=== PATIENT | male | born 1965 | race Caucasian/White ===

== ENCOUNTER 2024-03-23 02:02 | Inpatient (IN) | payer OTHER ==
[2024-03-23] VITALS (22 sets, daily range): BP systolic 97–137; BP diastolic 66–115; PULSE 85–160; RESP 16–30; TEMP 97.9–98.8; O2SAT 93–100
[~2024-03-23] VITALS: Ht 195.6 cm; Wt 129.3 kg
[2024-03-23] MEDS ORDERED: DIGOXIN INJ 0.25 MG/ML 2 ML AMP ONE (02:13)
[2024-03-23] MEDS: DILTIAZEM HCL 5 MG/ML 5 ML VIAL IV STA ×2 (02:14→03:34)
[2024-03-23] MEDS ORDERED: METOPROLOL TARTRATE INJ 1 MG/ML VIAL ONE (02:14)
[2024-03-23] MEDS: ASPIRIN 325 MG TAB PO STA (02:15)
[2024-03-23] MEDS: METOPROLOL TARTRATE INJ 1 MG/ML VIAL IV STA (02:19)
[2024-03-23] MEDS: DIGOXIN INJ 0.25 MG/ML 2 ML AMP IV STA (02:19)
[2024-03-23 02:35] LABS: BASOPHILS % 0.2 % (0.0-1.0); EOSINOPHILS # (AUTO) 0.1 (0.0-0.4); EOSINOPHILS % 0.5 % (0.0-6.0); HEMATOCRIT 46.5 % (38.2-49.6); HEMOGLOBIN 14.8 g/dL (14.0-18.0); LYMPHOCYTES # (AUTO) 2.3 (1.0-3.2); LYMPHOCYTES % 13.7 % (18.0-39.1); MEAN CORPUSCULAR HEMOGLOBIN 29.2 pg (28-32); MEAN CORPUSCULAR HGB CONC 31.8 g/dL (31-35); MEAN CORPUSCULAR VOLUME 91.9 fL (81-99); MONOCYTES # (AUTO) 1.7 (0.2-0.8); MONOCYTES % 10.2 % (4.4-11.3); NEUTROPHILS # (AUTO) 12.5 (2.1-6.9); NEUTROPHILS % 74.9 % (38.7-80.0); PLATELET COUNT 219 x10e3/uL (140-360); RED BLOOD COUNT 5.06 x10e6/uL (4.3-5.7); RED CELL DISTRIBUTION WIDTH 14.3 % (11.7-14.4); WHITE BLOOD COUNT 16.73 x10e3/uL (4.8-10.8)
[2024-03-23] MEDS ORDERED: IOPAMIDOL 370 MG/ML 100 ML INFUS..BTL INJ ONE (02:39)
[2024-03-23 02:53] LABS: ALBUMIN 3.7 g/dL (3.5-5.0); ALBUMIN/GLOBULIN RATIO 1.4 (0.8-2.0); ANION GAP 15.8 mmol/L (8-16); CALCIUM 9.1 mg/dL (8.4-10.2); CREATININE, SERUM 1.47 mg/dL (0.72-1.25); POTASSIUM 3.8 mmol/L (3.5-5.1); TOTAL PROTEIN 6.4 g/dL (6.5-8.1)
[2024-03-23 03:12] LABS: TROPONIN I 0.008 ng/mL (0-0.300)
[2024-03-23] MEDS ORDERED: Morphine 4mg INJECTION 4 MG/ML INJ IV PRN (04:00)
[2024-03-23] MEDS ORDERED: ONDANSETRON HCL INJ 2MG/ML 2ML 2 MG/ML VIAL IV PRN (04:00)
[2024-03-23] MEDS: SODIUM CHLORIDE 0.9% 1000ML 1,000 ML IV SCH (04:01)
[2024-03-23] MEDS ORDERED: OZEMPIC1 MG/0.71 SC (05:41)
[2024-03-23] MEDS: AMIODARONE HCL 150 MG/100 ML BAG IV ONE (10:02)
[2024-03-23] MEDS: AMIODARONE 900MG 500 ML IV SCH (10:07)
[2024-03-23 10:26] LABS: CHOL/HDL RATIO 4.3 (3.9-4.7)
[2024-03-23 10:33] LABS: TROPONIN I 0.009 ng/mL (0-0.300)
[2024-03-23] MEDS: AMIODARONE 900MG 500 ML IV ONE (10:44)
[2024-03-23] MEDS: LEVOFLOXACIN 500MG/D5W 100ML 100 ML IV SCH (10:44)
[2024-03-23] MEDS: METOPROLOL TARTRATE INJ 1 MG/ML VIAL IV PRN (16:55)
[2024-03-23] MEDS: APIXABAN 5 MG TABLET PO SCH (16:56)
[2024-03-23] MEDS: METOPROLOL TARTRATE 50 MG TAB PO SCH (17:18)
[2024-03-24] VITALS (27 sets, daily range): BP systolic 102–155; BP diastolic 72–129; PULSE 85–128; RESP 14–29; TEMP 97.9–98.4; O2SAT 88–99
[2024-03-24 07:41] LABS: BASOPHILS # (AUTO) 0.1 (0.0-0.1); BASOPHILS % 0.4 % (0.0-1.0); EOSINOPHILS % 0.1 % (0.0-6.0); HEMATOCRIT 49.2 % (38.2-49.6); HEMOGLOBIN 15.4 g/dL (14.0-18.0); LYMPHOCYTES # (AUTO) 1.9 (1.0-3.2); LYMPHOCYTES % 13.8 % (18.0-39.1); MEAN CORPUSCULAR HEMOGLOBIN 28.8 pg (28-32); MEAN CORPUSCULAR HGB CONC 31.3 g/dL (31-35); MONOCYTES # (AUTO) 2.1 (0.2-0.8); MONOCYTES % 15.5 % (4.4-11.3); NEUTROPHILS # (AUTO) 9.6 (2.1-6.9); NEUTROPHILS % 69.9 % (38.7-80.0); PLATELET COUNT 172 x10e3/uL (140-360); RED BLOOD COUNT 5.35 x10e6/uL (4.3-5.7); RED CELL DISTRIBUTION WIDTH 14.8 % (11.7-14.4); WHITE BLOOD COUNT 13.72 x10e3/uL (4.8-10.8)
[2024-03-24 08:17] LABS: ALBUMIN 3.4 g/dL (3.5-5.0); ANION GAP 19.7 mmol/L (8-16); BILIRUBIN,TOTAL 1.8 mg/dL (0.2-1.2); CALCIUM 8.7 mg/dL (8.4-10.2); CREATININE, SERUM 1.07 mg/dL (0.72-1.25); POTASSIUM 4.7 mmol/L (3.5-5.1); TOTAL PROTEIN 6.8 g/dL (6.5-8.1)
[2024-03-24] MEDS: FUROSEMIDE INJ 10 MG/ML 4 ML VIAL IV ONE (09:29)
[2024-03-24] MEDS: OLMESARTAN 20 MG TAB PO SCH (11:22)
[2024-03-24] MEDS: AMIODARONE 900MG 500 ML IV SCH (19:48)
[2024-03-25] VITALS (38 sets, daily range): BP systolic 96–133; BP diastolic 56–111; PULSE 36–132; RESP 13–31; TEMP 98.3–98.8; O2SAT 91–100
[2024-03-25 07:03] LABS: BASOPHILS % 0.2 % (0.0-1.0); EOSINOPHILS # (AUTO) 0.1 (0.0-0.4); EOSINOPHILS % 0.4 % (0.0-6.0); HEMATOCRIT 43.6 % (38.2-49.6); HEMOGLOBIN 14.4 g/dL (14.0-18.0); LYMPHOCYTES # (AUTO) 1.9 (1.0-3.2); LYMPHOCYTES % 13.5 % (18.0-39.1); MEAN CORPUSCULAR HEMOGLOBIN 28.3 pg (28-32); MEAN CORPUSCULAR VOLUME 85.8 fL (81-99); MONOCYTES # (AUTO) 1.8 (0.2-0.8); MONOCYTES % 13.3 % (4.4-11.3); NEUTROPHILS # (AUTO) 9.9 (2.1-6.9); NEUTROPHILS % 72.2 % (38.7-80.0); PLATELET COUNT 234 x10e3/uL (140-360); RED BLOOD COUNT 5.08 x10e6/uL (4.3-5.7); RED CELL DISTRIBUTION WIDTH 14.4 % (11.7-14.4); WHITE BLOOD COUNT 13.68 x10e3/uL (4.8-10.8)
[2024-03-25 07:36] LABS: ALBUMIN 3.2 g/dL (3.5-5.0); ANION GAP 14.9 mmol/L (8-16); BILIRUBIN,TOTAL 1.9 mg/dL (0.2-1.2); CALCIUM 8.7 mg/dL (8.4-10.2); CREATININE, SERUM 1.22 mg/dL (0.72-1.25); POTASSIUM 3.9 mmol/L (3.5-5.1); TOTAL PROTEIN 6.3 g/dL (6.5-8.1)
[2024-03-25] MEDS: FUROSEMIDE INJ 10 MG/ML 4 ML VIAL IV ONE (12:21)
[2024-03-25] MEDS: DIGOXIN INJ 0.25 MG/ML 2 ML AMP IV ONE (14:06)
[2024-03-25] MEDS: AMIODARONE 900MG 500 ML IV SCH (14:07)
[2024-03-25] MEDS: AMIODARONE 900MG 500 ML IV ONE (14:20)
[2024-03-25] MEDS: AMIODARONE HCL 200 MG TAB PO SCH (18:03)
[2024-03-26] VITALS (27 sets, daily range): BP systolic 73–144; BP diastolic 46–106; PULSE 80–125; RESP 17–31; TEMP 97.8; O2SAT 80–100
[2024-03-26 06:24] LABS: BASOPHILS % 0.3 % (0.0-1.0); EOSINOPHILS % 0.3 % (0.0-6.0); HEMATOCRIT 43.6 % (38.2-49.6); HEMOGLOBIN 13.9 g/dL (14.0-18.0); LYMPHOCYTES # (AUTO) 1.8 (1.0-3.2); LYMPHOCYTES % 14.3 % (18.0-39.1); MEAN CORPUSCULAR HEMOGLOBIN 28.8 pg (28-32); MEAN CORPUSCULAR HGB CONC 31.9 g/dL (31-35); MEAN CORPUSCULAR VOLUME 90.3 fL (81-99); MONOCYTES # (AUTO) 1.8 (0.2-0.8); MONOCYTES % 13.7 % (4.4-11.3); NEUTROPHILS # (AUTO) 9.1 (2.1-6.9); PLATELET COUNT 219 x10e3/uL (140-360); RED BLOOD COUNT 4.83 x10e6/uL (4.3-5.7); RED CELL DISTRIBUTION WIDTH 14.4 % (11.7-14.4); WHITE BLOOD COUNT 12.81 x10e3/uL (4.8-10.8)
[2024-03-26 07:04] LABS: ALBUMIN 2.9 g/dL (3.5-5.0); ALBUMIN/GLOBULIN RATIO 0.9 (0.8-2.0); ANION GAP 12.7 mmol/L (8-16); BILIRUBIN,TOTAL 1.9 mg/dL (0.2-1.2); CREATININE, SERUM 1.19 mg/dL (0.72-1.25); POTASSIUM 3.7 mmol/L (3.5-5.1)
[2024-03-26] MEDS: FUROSEMIDE INJ 10 MG/ML 4 ML VIAL IV ONE (10:02)
[2024-03-26] MEDS ORDERED: FENTANYL CITRATE/PF 100MCG/2 ML INJ ONE (11:41)
[2024-03-26] MEDS ORDERED: PROPOFOL IV EMULSION 10 MG/ML 20 ML VIAL ONE (11:42)
[2024-03-26] MEDS ORDERED: LIDOCAINE HCL 2% LOCAL INJ 5 ML SDV VIAL INJ ONE (11:42)
[2024-03-26] MEDS ORDERED: GLYCOPYRROLATE INJ 0.2 MG/ML VIAL ONE (11:43)
[2024-03-26] MEDS ORDERED: PHENYLEPHRINE HCL 1% 10 MG/ML VIAL ONE ×2 (12:10→12:24)
[2024-03-26] MEDS ORDERED: ACETAMINOPHEN 1000 MG/100 ML 100 ML IV ONE (12:17)
[2024-03-26] MEDS ORDERED: METOPROLOL TARTRATE INJ 1 MG/ML VIAL ONE ×2 (12:19)
[2024-03-26] MEDS: SODIUM CHLORIDE 0.9% 500ML 500 ML ONE (13:51)
[2024-03-26] MEDS: SODIUM CHLORIDE 0.9% 1000ML 1,000 ML ONE (13:52)
[2024-03-26] MEDS ORDERED: LEVOFLOXACIN250 MG PO (14:51)
[2024-03-26] MEDS ORDERED: ELIQUIS5 MG PO (14:51)
[2024-03-26] MEDS ORDERED: METOPROLOL SUCC50 MG PO (14:53)
[2024-03-26] MEDS ORDERED: AMIODARONE HCL100 MG PO (14:53)
[2024-03-26] MEDS ORDERED: BENICAR20 MG PO (14:55)
== END 2024-03-26 16:30 | disposition home or self-care (01) | DRG 308 ==
LOC: ER 02:08 → ERHOLD 03:49 → MED/SURG3 04:37 → ICU 08:18
PROVIDERS: ADMIT Internal Medicine; ATTEND Internal Medicine
DX: I48.19 Other persistent atrial fibrillation (principal); I13.0 Hypertensive heart and chronic kidney disease with heart failure and stage 1 through stage 4 chronic kidney disease, or unspecified chronic kidney disease; I50.43 Acute on chronic combined systolic (congestive) and diastolic (congestive) heart failure; J18.9 Pneumonia, unspecified organism; N17.9 Acute kidney failure, unspecified; N18.2 Chronic kidney disease, stage 2 (mild); R53.81 Other malaise; E66.9 Obesity, unspecified; Z68.33 Body mass index [BMI] 33.0-33.9, adult; Z79.85 Long-term (current) use of injectable non-insulin antidiabetic drugs; Z87.891 Personal history of nicotine dependence; Z82.49 Family history of ischemic heart disease and other diseases of the circulatory system
CPT/HCPCS: 36415; 71045; 71260; 80053; 80061; 82044; 82550; 82948; 83605; 83690; 83880; 84484; 85025; 87040; 93005; 93306; 93307; 93312; 93320; 93325; 99252; 99284; J1160; J1940; J1956; J2003; J2371; J2543; J7030; J7040; J7050; Q9967